=== PATIENT | female | born 1985 | race Caucasian/White ===

== ENCOUNTER 2021-01-14 06:08 | Day surgery (SDC) | payer OTHER ==
[2021-01-14 09:11] VITALS: BP 116/81
== END 2021-01-14 09:30 | disposition home or self-care (01) ==
LOC: OR 06:08
PROVIDERS: ATTEND Obstetrics & Gynecology
DX: Z30.432 Encounter for removal of intrauterine contraceptive device (principal); T83.39XA Other mechanical complication of intrauterine contraceptive device, initial encounter; E66.9 Obesity, unspecified; K21.9 Gastro-esophageal reflux disease without esophagitis; G43.909 Migraine, unspecified, not intractable, without status migrainosus; F17.210 Nicotine dependence, cigarettes, uncomplicated; Y82.8 Other medical devices associated with adverse incidents; Y92.89 Other specified places as the place of occurrence of the external cause; Z88.0 Allergy status to penicillin; Z79.899 Other long term (current) drug therapy; Z98.891 History of uterine scar from previous surgery; Z72.89 Other problems related to lifestyle; Z98.890 Other specified postprocedural states; Z68.39 Body mass index [BMI] 39.0-39.9, adult
CPT/HCPCS: 58562; 81025; 82962; 88300; A4217; J1100; J1885; J2250; J2405; J2704; J3010; J7120